=== PATIENT | male | born 1975 | race Caucasian/White ===

== ENCOUNTER 2019-10-12 06:26 | Day surgery (SDC) | payer OTHER ==
[2019-10-12] MEDS ORDERED: Lactated Ringers 1,000 ML IV ONE (06:59)
[2019-10-12] MEDS ORDERED: Lactated Ringers 1,000 ML IV SCH (07:00)
[2019-10-12] MEDS ORDERED: Ketamine HCl 50 MG/ML ONE (07:49)
[2019-10-12] MEDS ORDERED: DIPRIVAN 200 MG/20 ML IV ONE (07:49)
--- NOTE | 2019-10-12 09:04 | OP ---
SURGERY DATE/TIME: 10/12/2019 0800 PREOPERATIVE DIAGNOSIS: Rectal bleeding. POSTOPERATIVE DIAGNOSIS: Normal colon. PROCEDURE: Diagnostic colonoscopy. SURGEON: Micheal Galdamez M.D. ANESTHESIA: MAC by Galen Castle CRNA. ESTIMATED BLOOD LOSS: None. SPECIMENS: None. DESCRIPTION OF PROCEDURE: After informed written consent was obtained, the patient was taken to the endoscopy suite. He had continuous pulse oximetry and intermittent blood pressure monitoring through the entirety of the procedure. He was placed in left lateral decubitus position and anesthesia was titrated to desired level of consciousness. A digital rectal exam showed normal sphincter tone and no internal lesions. The scope was inserted into the rectum and sequentially the entire colonic mucosa was traversed. The level of cecum was reached and verified with direct visualization of ileocecal valve. Upon withdrawal careful mucosal inspection revealed no gross abnormalities. Pre was noted to be good. Prior to withdrawal retroflexion was performed and showed no obvious internal lesions. The scope was removed. The patient was transferred to the recovery room in good condition.
[2019-10-12 09:11] VITALS: O2SAT 97
[2019-10-12 09:18] VITALS: BP 134/88; PULSE 62
== END 2019-10-12 09:15 | disposition home or self-care (01) ==
LOC: SDC 06:26
PROVIDERS: ATTEND Family Medicine
DX: K62.5 Hemorrhage of anus and rectum (principal)
CPT/HCPCS: J2704